=== PATIENT | male | born 1945 | race Caucasian/White ===

== ENCOUNTER 2018-08-28 13:02 | Observation (INO) | payer MEDICARE, OTHER ==
[~2018-08-28 13:02] MED LIST: LACTATED RINGER'S 1,000 ML IV*
[2018-08-28 14:38] LABS: INR 0.93; PROTIME 12.6 Sec (11.9-14.9)
[2018-08-28 14:39] LABS: PARTIAL THROMBOPLASTIN TIME 25.3 Sec (23.0-35.0)
[2018-08-28] MEDS ORDERED: CA CHLORIDE 10% 10 ML SYRINGE (15:51)
[2018-08-28] MEDS ORDERED: GELATIN SIZE 100 SPONGE (15:51)
[2018-08-28] MEDS ORDERED: THROMBIN (BOVINE) 5,000 UNIT VIAL TP (15:51)
[2018-08-28] MEDS ORDERED: CYCLOBENZAPRINE 10 MG TAB PO (16:00)
[2018-08-28] MEDS ORDERED: ACETAMINOPHEN 325 MG TAB PO (16:00)
[2018-08-28] MEDS ORDERED: ONDANSETRON 4 MG INJ IV ×2 (16:00→17:00)
[2018-08-28] MEDS ORDERED: BISACODYL 10 MG SUPP PR (16:00)
[2018-08-28] MEDS ORDERED: OXYCODONE/ACETAMINOPHEN (10/325) TAB PO (16:00)
[2018-08-28] MEDS ORDERED: DIPHENHYDRAMINE 25 MG CAP PO (16:00)
[2018-08-28] MEDS ORDERED: AL HYDROX/MG HYDROX/SIMETH 30 ML CUP PO (16:00)
[2018-08-28] MEDS ORDERED: DIPHENHYDRAMINE 50 MG INJ IV ×2 (16:00→17:00)
[2018-08-28] MEDS ORDERED: NALOXONE (0.4 MG/ML) INJ IV (16:00)
[2018-08-28] MEDS ORDERED: HYDROmorphONE 0.5 MG/0.5 ML SYG IV (16:00)
[2018-08-28] MEDS ORDERED: CEPASTAT LOZENGE MT (16:00)
[2018-08-28] MEDS ORDERED: FENTAnyl 50 MCG/ML VIAL ×2 (16:19→18:31)
[2018-08-28] MEDS ORDERED: ROCURONIUM 50 MG INJ (16:19)
[2018-08-28] MEDS ORDERED: LIDOCAINE 2% (SDV) 5 ML INJ (16:19)
[2018-08-28] MEDS ORDERED: SUCCINYLCHOLINE CHLORIDE 100 MG/5 ML SYG IV (16:19)
[2018-08-28] MEDS ORDERED: PROPOFOL 20 ML (16:19)
[2018-08-28] MEDS ORDERED: CEFAZOLIN 1 GM INJ (16:28)
[2018-08-28] MEDS ORDERED: ONDANSETRON 4 MG INJ (16:40)
[2018-08-28] MEDS ORDERED: DEXAMETHASONE 4 MG/ML 5 ML INJ (16:41)
[2018-08-28] MEDS ORDERED: FAMOTIDINE 20 MG INJ (16:41)
[2018-08-28] MEDS ORDERED: FENTAnyl 50 MCG/ML VIAL IV (17:00)
[2018-08-28] MEDS ORDERED: MEPERIDINE 25 MG INJ IV (17:00)
[2018-08-28] MEDS ORDERED: PROCHLORPERAZINE 10 MG INJ IV (17:00)
[2018-08-28] MEDS ORDERED: HYDROmorphONE 1 MG/5 ML IV SYRINGE IV ×3 (17:00)
[2018-08-28] MEDS: POLYMYXIN B 500000 UNIT INJ (17:12)
[2018-08-28] MEDS: SURGIFOAM POWDER 1 GM KIT (17:12)
[2018-08-28] MEDS: BACITRACIN 50000 UNITS INJ IRR (17:12)
[2018-08-28] MEDS: THROMBIN 5000 UNIT VIAL TOP (17:13)
[2018-08-28] MEDS: BUPIVACAINE 0.5%/EPI (SDV) 30 ML INJ (17:13)
[2018-08-28] MEDS ORDERED: NEOSTIGMINE 3 MG/3 ML SYRINGE (18:21)
[2018-08-28] MEDS ORDERED: GLYCOPYRROLATE 0.4 MG INJ ×2 (18:21→18:33)
[2018-08-28] MEDS: HYDROmorphONE 0.2 MG/ML PCA IV (19:22)
[2018-08-28] MEDS: DOCUSATE SODIUM 100 MG CAP PO (22:00)
[2018-08-28] MEDS: CEFAZOLIN 1 GM/50 ML (PMX) 50 ML IVPB (23:12)
[2018-08-29] MEDS: D5W-0.45 NACL + KCL 20 MEQ 1,000 ML IV ×2 (01:24→11:40)
[2018-08-29 05:21] LABS: ADD MAN DIFF? NO
[2018-08-29 05:25] LABS: WHITE BLOOD COUNT 7.1 10^3/ul (4.8-10.8)
[2018-08-29 05:25] LABS: BASOPHILS % 0.3 % (0.0-2.0); HEMATOCRIT 37.7 % (42.0-52.0); HEMOGLOBIN 12.7 g/dl (14.0-18.0); LYMPHOCYTES # 0.7 10^3/ul (0.8-2.9); LYMPHOCYTES % 9.8 % (15.0-51.0); MEAN CORPUSCULAR HEMOGLOBIN 31.8 pg (29.0-33.0); MEAN CORPUSCULAR HGB CONC 33.7 g/dl (32.0-37.0); MEAN CORPUSCULAR VOLUME 94.5 fl (82.0-101.0); MONOCYTE # 0.2 10^3/ul (0.3-0.9); MONOCYTES % 3.2 % (0.0-11.0); NEUTROPHIL # 6.1 10^3/ul (1.6-7.5); PLATELET COUNT 194 10^3/UL (140-415); RED BLOOD COUNT 3.99 10^6/ul (4.70-6.10); RED CELL DISTRIBUTION WIDTH 12.6 % (11.5-14.5)
[2018-08-29 05:50] LABS: ANION GAP 8 (5-13); BLOOD UREA NITROGEN 13 mg/dl (7-20); CALCIUM 9.6 mg/dl (8.4-10.2); CARBON DIOXIDE 26 mmol/L (21-31); CHLORIDE 106 mmol/L (97-110); CREATININE 0.92 mg/dl (0.61-1.24); GLUCOSE 181 mg/dl (70-220); POTASSIUM 5.1 mmol/L (3.5-5.1); SODIUM 140 mmol/L (135-144)
[2018-08-29] MEDS: CEFAZOLIN 2 GM/50 ML (PMX) 50 ML IVPB (08:00)
[2018-08-29] MEDS: CEFAZOLIN 1 GM/50 ML (PMX) 50 ML IVPB (08:31)
[2018-08-29] MEDS: DOCUSATE SODIUM 100 MG CAP PO (08:32)
[2018-08-29] MEDS: OXYCODONE/ACETAMINOPHEN (10/325) TAB PO (10:14)
[2018-08-30] MEDS ORDERED: AMIODARONE 200 MG TAB PO (09:00)
== END 2018-08-29 15:05 | disposition home or self-care (01) ==
LOC: REC 13:02 → MS1 20:35
DX: M41.86 Other forms of scoliosis, lumbar region (principal); M48.061 Spinal stenosis, lumbar region without neurogenic claudication; M51.16 Intervertebral disc disorders with radiculopathy, lumbar region; I48.91 Unspecified atrial fibrillation; J45.909 Unspecified asthma, uncomplicated; E78.5 Hyperlipidemia, unspecified; M81.0 Age-related osteoporosis without current pathological fracture
CPT/HCPCS: 63030; 72020; 80048; 83735; 85025; 85610; 85730; 86999; 88304; 88311; 93005; 97116; 97161